=== PATIENT | male | born 1940 | race Caucasian/White ===

== ENCOUNTER → 2017-04-13 | Outpatient (CLI) | payer OTHER ==
[~2017-04-13] MED LIST: ASPCH81X PO; ATEN-173 PO; AZEL137S6 NAE; DUTA0.5C PO; FLNIN NAE; LISI10TA PO; MELA1TAB54 PO; MONT1TAB3 PO; MULTCHW PO; OMEGCAP2 PO; PANT40TA PO; PSYL55.43 PO; TAMS0.4C59 PO; TEMA30CA4 PO; XRL10 PO
--- NOTE | 2017-04-13 12:06 | DIAGNOSTIC IMAGING REPORT ---
ULTRASOUND KIDNEYS AND BLADDER CLINICAL HISTORY: Dysuria. COMPARISON STUDY: Abdominal CT dated 03/06/2015. TECHNIQUE: Real-time, grayscale, and color flow sonography of the kidneys and bladder is performed. Images are reviewed in the transverse and longitudinal planes. FINDINGS: Kidneys: The kidneys are atrophic. The right kidney measures 11.3 x 5.7 x 5.9 cm and the left kidney measures 11.1 x 4.5 x 5.9 cm. There is no hydronephrosis. No shadowing renal calculi are identified. A 2.6 cm lesion in the upper pole the left kidney likely represents a cyst when correlated with the 03/06/2015 CT scan. There is no sonographic evidence of solid renal mass lesion. No perinephric fluid is identified. Bladder: The bladder is normal in appearance. Bilateral ureteral jets were seen. IMPRESSION: 1. The kidneys are atrophic and without hydronephrosis. 2. The bladder was normal as visualized. 3. A 2.6 cm hypoechoic lesion in the upper pole of left kidney has been present dating back to 2014 and although indeterminant by ultrasound met CT criteria for a simple cyst on the 03/06/2015 CT scan. Electronically signed by: Sam Bajwa M.D. 04/13/2017 12:05 PM Dictated Date/Time: 04/13/2017 12:02 PM
== END | disposition home or self-care (01) ==
LOC: C.ULTR 10:10
PROVIDERS: ATTEND Urology
DX: N20.0 Calculus of kidney (principal); R30.0 Dysuria; N26.1 Atrophy of kidney (terminal); N28.9 Disorder of kidney and ureter, unspecified

== ENCOUNTER 2025-02-16 19:23 | Inpatient (IN) ==
--- NOTE | 2025-02-16 19:34 | Emergency Department Note ---
Impression & Plan Asthma exacerbation, Fever, Anemia, Nausea, Hypoxia ED Provider Note ED Provider Note NAME: KWADWO ELLIOTT AGE:85 SEX: Male : 1940 ARRIVES VIA: POV INFORMANT: Patient ED PROVIDER(s): Todd Guevara DO CHIEF COMPLAINT: Fever HPI: 85-year-old male presents emergency room with complaints of fever. Patient states that he really just got sick today. His states he has been sick for the last 4 days. His states that his temperature was 102 at home.He states that he had nausea and fever. He denies any abdominal pain. No exposure to anyone sick. Was seen at PCPs office today and given azithromycin. They are not sure why this happened. He does have a history of asthma. They deny history of COPD. PAST MEDICAL HISTORY:See Below PAST SURGICAL HISTORY:See Below FAMILY HISTORY:See Below SOCIAL HISTORY:See Below HOME MEDICATIONS:See Below ALLERGIES:See Below VITALS:See Below PHYSICAL EXAMINATION: GENERAL: alert, well appearing, well nourished, no distress, non-toxic EYE EXAM: normal conjunctiva, PERRL and EOM's grossly intact OROPHARYNX: no exudate, no erythema, lips, buccal mucosa, and tongue normal and mucous membranes are moist NECK: supple, no nuchal rigidity, no adenopathy, non-tender LUNGS: Wheezing to auscultation. Normal chest wall mechanics, no w/r/r HEART: no murmurs, S1 normal and S2 normal ABDOMEN: abdomen soft, non-tender, normo-active bowel sounds, no masses, no rebound or guarding. BACK: Back is symmetrical on inspection and there is no deformity, no midline tenderness, no CVA tenderness. SKIN: no rashes, petechiae, orbruising UPPER EXTREMITIES: upper extremities are grossly normal. FROM, nml pulses b/l. LOWER EXTREMITIES: No pitting edema. FROM, nml pulses b/l. NEURO EXAM: Normal sensorium, gross sensation intact. No ataxia. Vital Signs: reviewed and remarkable Differential Diagnosis: Viral syndrome, otitis, pharyngitis, pneumonia, influenza, meningitis, urinary tract infection, sepsis, bacteremia, as well as other pathologies. [employer]ISION [employer]KIN-year-old male presents emergency room with complaints of fever. Pt with hematuria, states that this is his baseline. No flank pain. States that it has been like this for years, he has had it worked up in the past. patient with history of asthma, wheezing, desatting below 88% with ambulation in the emergency room. Does not have oxygen at home. I spoke with him about results and plan for prednisone and nebulizer treatment. I spoke him about plan for admission given his hypoxia. He is agreeable to plan. He did already take azithromycin 500 today. I spoke with him and his family about results and plan for admission. They are agreeable to plan. Consult: Hospitalist ER Treatment Provided: See below Diagnostics Interpreted By Me: -Cardiac Monitoring: An order was placed for continuous cardiac monitoring. The monitor shows a rate of 89 with NS rhythm. -Laboratory studies: As stated above and show below. -Imaging studies: CXR - cardiomegaly Triage Nursing Note Reviewed Prior/Outside Records Reviewed Past Med/Surg History Problem List (Updated 02/16/25 @ 22:42 by Tracy Guevara DO) Hypoxia (Acute) Asthma exacerbation (Acute) Nausea (Acute) Anemia (Acute) Fever (Acute) Aortic regurgitation BPH (benign prostatic hyperplasia) Hiatal hernia AAA (abdominal aortic aneurysm) Dyslipidemia Hypertension S/P CABG (coronary artery bypass graft) CAD (coronary artery disease) Medical History Nephrolithiasis Surgical History H/O total hip arthroplasty S/P cholecystectomy Social History Smoking Status: Never smoker Preferred Language: Lao Feels Safe at Home: Yes Allergies Allergies Allergy/AdvReac Type Severity Reaction Status Date / Time rivaroxaban [From Xarelto] Allergy Unknown CAN'T Verified 02/16/25 21:19 REMEMBER sulfamethoxazole Allergy Unknown CAN'T Verified 02/16/25 21:19 [From Bactrim] REMEMBER trimethoprim [From Bactrim] Allergy Unknown CAN'T Verified 02/16/25 21:19 REMEMBER haloperidol AdvReac Severe "OUT OF Verified 02/16/25 21:19 IT" FOR 3 DAYS Penicillins AdvReac Intermediate "PASSED Verified 02/16/25 21:19 OUT" Home Meds Home Medications Medication Instructions Recorded Confirmed aspirin 81 mg tablet 81 mg PO DAILY 02/22/19 02/16/25 lisinopril 10 mg tablet 10 mg PO DAILY 02/22/19 02/16/25 montelukast 10 mg tablet 10 mg PO DAILY 02/22/19 02/16/25 pantoprazole 40 mg tablet,delayed 40 mg PO DAILY 02/22/19 02/16/25 release sucralfate 100 mg/mL oral 5 ml PO QID PRN ABD DISCOMFORT 05/07/21 02/16/25 suspension (Carafate) azelastine 137 mcg (0.1 %) nasal 2 spray intranasal Q12H PRN 05/06/22 02/16/25 spray Congestion temazepam 30 mg capsule 30 mg PO QPM PRN sleep 05/06/22 02/16/25 acetaminophen 650 mg 650 mg PO Q12H PRN fever or pain 09/02/22 02/16/25 tablet,extended release (Tylenol 8 Hour) fluticasone propionate 50 2 spray intranasal DAILY PRN 09/02/22 02/16/25 mcg/actuation nasal allergy symptoms spray,suspension psyllium husk 3.4 gram/5.4 gram 1 tbsp PO DAILY 09/02/22 02/16/25 oral powder (Metamucil) tamsulosin 0.4 mg capsule 0.4 mg PO DAILY #120 caps 09/02/22 02/16/25 rosuvastatin 40 mg tablet 40 mg PO DAILY 07/14/24 02/16/25 Results & Data (ED) Vital Signs Vital Signs - 24 hr 02/16/25 19:26 02/16/25 20:46 02/16/25 20:46 Temperature 37.1 C Temperature Source Oral Pulse Rate 100 H 89 Pulse Rate [Apical] 90 Pulse Rhythm Regular Pulse Rhythm [Apical] Pulse Strength [Apical] Respiratory Rate 16 20 Respiratory Effort / Characteristics Non-Labored Non-Labored Respiratory Depth Normal Normal Respiratory Pattern Regular Blood Pressure 160/87 H Blood Pressure [Right Arm] 139/68 Blood Pressure Mean 111 Blood Pressure Mean [Right Arm] 91 Pulse Oximetry 92 93 93 Oxygen Delivery Method Room Air Room Air Room Air Sepsis Recent Fever Within 48 Hours Yes Sepsis New/Unexplained Change in Mental Status No Sepsis Action Taken by Nursing No Action Required 02/16/25 22:00 02/16/25 22:40 02/16/25 22:52 Temperature Temperature Source Pulse Rate Pulse Rate [Apical] 92 H 89 Pulse Rhythm Pulse Rhythm [Apical] Regular Regular Pulse Strength [Apical] Normal Respiratory Rate 16 20 Respiratory Effort / Characteristics Non-Labored Spontaneous Accessory Muscle Use Non-Labored Spontaneous Respiratory Depth Normal Respiratory Pattern Regular Blood Pressure Blood Pressure [Right Arm] 133/68 150/73 H Blood Pressure Mean Blood Pressure Mean [Right Arm] 89 98 Pulse Oximetry 92 87 L 99 Oxygen Delivery Method Room Air Room Air Room Air Sepsis Recent Fever Within 48 Hours Sepsis New/Unexplained Change in Mental Status Sepsis Action Taken by Nursing Laboratory Data 02/16/25 20:37 02/16/25 20:37 Lab Results 02/16/25 02/16/25 Range/Units 20:37 20:55 WBC 4.99 (4.8-10.8) K/ul RBC 3.65 L (4.70-6.10) M/uL Hgb 11.7 L (14.0-18.0) g/dl Hct 33.7 L (42.0-52.0) % MCV 92.3 (80.0-100.0) fL MCH 32.1 (25.0-34.0) pg MCHC 34.7 (32.0-36.0) g/dL RDW Std Deviation 46.7 H (36.4-46.3) fL RDW Coeff of Maya 13.6 (11.5-14.5) % Plt Count 125 L (130-400) K/uL MPV 11.8 (9.4-12.4) fL Immature Gran % (Auto) 0.8 % Neut % (Auto) 76.6 % Lymph % (Auto) 10.6 % [place] % (Auto) 10.6 % Eos % (Auto) 0.8 % Baso % (Auto) 0.6 % Neut # (Auto) 3.82 (1.40-6.50) K/uL Lymph # (Auto) 0.53 L (1.20-3.40) K/uL [place] # (Auto) 0.53 (0.11-0.59) K/uL Eos # (Auto) 0.04 (0.00-0.50) K/uL Baso # (Auto) 0.03 (0.00-0.20) K/uL Immature Gran # (Auto) 0.04 (0.01-0.20) K/uL Sodium 136 (136-145) mmol/L Potassium 4.3 (3.5-5.1) mmol/L Chloride 102 (98-107) mmol/L Carbon Dioxide 25 (21-32) mmol/L Anion Gap 9 (3-11) BUN 34 H (6-23) mg/dl Creatinine 1.64 H (0.6-1.4) mg/dl Est Cr Clr Drug Dosing 34.1 ml/min eGFR 40.23 BUN/Creatinine Ratio 20.7 H (10-20) Glucose 131 H (70-99(Fasting)) mg/dl Lactate 0.9 (0.4-2.0) mmol/L Calcium 9.2 (8.6-10.3) mg/dl Total Bilirubin 0.5 (0.2-1.0) mg/dl AST 16 (13-39) U/L ALT 12 (7-52) U/L Alkaline Phosphatase 48 (34-104) U/L Total Protein 7.9 (6.0-8.3) gm/dl Albumin 4.0 (3.4-5.0) gm/dl Globulin 3.9 (2.5-4.0) gm/dl Albumin/Globulin Ratio 1.0 (0.9-2) Procalcitonin 0.11 (0-0.5) ng/ml Urine Color Yellow Urine Appearance Clear (Clear) Urine pH 5.0 (4.5-7.5) Ur Specific [place] 1.015 (1.000-1.030) Urine Protein 2+ H (Negative) Urine Glucose (UA) Negative (Negative) Urine Ketones Trace H (Negative) Urine Blood 3+ H (Negative) Urine Nitrite Negative (Negative) Urine Bilirubin Negative (Negative) Urine Urobilinogen Negative (Negative) Ur Leukocyte Esterase 1+ H (Negative) Urine WBC (Auto) 0-5 (0-5) /hpf Urine RBC (Auto) >20 H (0-2) /hpf U Hyaline Cast (Auto) 0-2 (0-2) /lpf U Epithel Cells (Auto) 0-2 (0-2) /hpf Urine Bacteria (Auto) None Seen (None Seen) Urine Comment SARS-CoV-2 (PCR) NEGATIVE (Negative) Influenza Type A (PCR) Negative (Neg) Influenza Type B (PCR) Negative (Neg) RSV (RT-PCR) Negative (Neg) Administered Medications Discontinued Medications Albuterol (Albut/Ipratrop 3mg/0.5mg Neb 3 Ml Vial) 3 ml NEB NOW STA; Protocol Stop: 02/16/25 22:42 Last Admin: 02/16/25 22:45 Dose: 3 ml Documented By: ezekiel Sodium Chloride (Nss) 1,000 mls @ 999 mls/hr IV .Q1H1M ONE Stop: 02/16/25 20:41 Last Infusion: 02/16/25 22:02 Dose: Infused Documented By: [email or web address] Admin: 02/16/25 20:51 Dose: 999 mls/hr Documented By: ezekiel Ondansetron HCl (Ondansetron 4 Mg Od Tab) 4 mg PO NOW STA Stop: 02/16/25 20:48 Last Admin: 02/16/25 21:02 Dose: 4 mg Documented By: ezekiel Prednisone (Prednisone 20 Mg Tab) 60 mg PO NOW STA Stop: 02/16/25 22:43 Last Admin: 02/16/25 22:49 Dose: 60 mg Documented By: ezekiel Imaging Data Radiologist's Impression: Chest X-Ray 02/16/25 21:10 Exam(s): XR CXR 1 VIEW EXAM: XR Chest, 1 View CLINICAL HISTORY: Reason for exam: fever. TECHNIQUE: Frontal view of the chest. COMPARISON: No relevant prior studies available. FINDINGS: Lungs: No grossly evident consolidation or overt edema. The left lung base is obscured by the heart size. Pleural space: No pleural effusion. No pneumothorax. Heart: Cardiomegaly status post CABG. IMPRESSION: Cardiomegaly status post CABG. Electronically signed by: Los Castro MD 02/16/25 22:28 PM Discharge Plan Visit Data Chief Complaint: Illness Stated Complaint: FEVER WEAK LOST CONTROL OF URINE ED Provider: Tracy Guevara Discharge Problem: Asthma exacerbation, Fever, Anemia, Nausea, Hypoxia Patient Disposition: Admitted As Inpatient Condition: Good Forms Stand Alone Forms: [facility], Important Visit Information Prescriptions Prescriptions: No Action Metamucil 3.4 gram/5.4 gram powder 1 tbsp PO DAILY Rx Instructions: mix into at least 8 oz of water or juice before administering acetaminophen [Tylenol 8 Hour] 650 mg tablet extended release 650 mg PO Q12H PRN (Reason: fever or pain) sucralfate [Carafate] 100 mg/mL suspension 5 ml PO QID PRN (Reason: ABD DISCOMFORT) Rx Instructions: swish in mouth and swallow; use after food/drink temazepam 30 mg capsule 30 mg PO QPM PRN (Reason: sleep) aspirin 81 mg tablet 81 mg PO DAILY montelukast 10 mg tablet 10 mg PO DAILY lisinopril 10 mg tablet 10 mg PO DAILY pantoprazole 40 mg tablet,delayed release (DR/EC) 40 mg PO DAILY azelastine 137 mcg (0.1 %) aerosol,spray 2 spray intranasal Q12H PRN (Reason: Congestion) fluticasone propionate 50 mcg/actuation spray,suspension 2 spray intranasal DAILY PRN (Reason: allergy symptoms) tamsulosin 0.4 mg capsule 0.4 mg PO DAILY Qty: 120 Rx Instructions: PER PT "NOT TAKING IT ANYMORE". rosuvastatin 40 mg tablet 40 mg PO DAILY Referrals Referrals: Kemal Lopez [Primary Care Provider] -
[2025-02-16 20:51] LABS: Hematocrit (blood only) 33.7 % (42.0-52.0); Hemoglobin 11.7 g/dl (14.0-18.0); Immature Granulocytes # (auto) 0.04 K/uL (0.01-0.20); Immature Granulocytes % (auto) 0.8 %; Mean Corpuscular Hemoglobin 32.1 pg (25.0-34.0); Mean Corpuscular Volume 92.3 fL (80.0-100.0); Platelet Count 125 K/uL (130-400); RDW Standard Deviation 46.7 fL (36.4-46.3); Red Blood Count 3.65 M/uL (4.70-6.10); White Blood Count 4.99 K/ul (4.8-10.8)
[2025-02-16] MEDS: SODIUM CHLORIDE 0.9% 1,000 ML IV ONE (20:51)
[2025-02-16] MEDS: ONDANSETRON 4 MG OD TAB PO STA (21:02)
[2025-02-16 21:08] LABS: Alanine Aminotransferase 12.0 U/L (7-52); Albumin Globulin Ratio 1.0 (0.9-2); Albumin Level 4.0 gm/dl (3.4-5.0); Alkaline Phosphatase 48.0 U/L (34-104); Anion Gap 9.0 (3-11); Bilirubin,Total 0.5 mg/dl (0.2-1.0); Blood Urea Nitrogen 34.0 mg/dl (6-23); Calcium 9.2 mg/dl (8.6-10.3); Carbon Dioxide 25.0 mmol/L (21-32); Chloride 102.0 mmol/L (98-107); Creatinine Clr Calc Pharmacy 34.1 ml/min; Globulin 3.9 gm/dl (2.5-4.0); Glucose 131.0 mg/dl (70-99(Fasting)); Potassium 4.3 mmol/L (3.5-5.1); Sodium 136.0 mmol/L (136-145); Total Protein 7.9 gm/dl (6.0-8.3)
[2025-02-16 21:24] LABS: Appearance Urine Clear (Clear); Bacteria Urine Automated None Seen (None Seen); Cast Urine Automated 0-2 /lpf (0-2); Epithelial Cell Urine Auto 0-2 /hpf (0-2); Glucose Urine UA Negative (Negative); RBC Urine Automated >20 /hpf (0-2); WBC Urine Automated 0-5 /hpf (0-5)
[2025-02-16 21:50] LABS: Influenza A virus by PCR Negative (Neg); Influenza B virus by PCR Negative (Neg); SARS CoV2 RNA(COVID-19) Ceph NEGATIVE (Negative)
--- NOTE | 2025-02-16 22:29 | XRay Report ---
Exam(s): XR CXR 1 VIEW EXAM: XR Chest, 1 View CLINICAL HISTORY: Reason for exam: fever. TECHNIQUE: Frontal view of the chest. COMPARISON: No relevant prior studies available. FINDINGS: Lungs: No grossly evident consolidation or overt edema. The left lung base is obscured by the heart size. Pleural space: No pleural effusion. No pneumothorax. Heart: Cardiomegaly status post CABG. IMPRESSION: Cardiomegaly status post CABG. Electronically signed by: Los Castro MD 02/16/25 22:28 PM
[2025-02-16] MEDS: ALBUT/IPRATROP 3MG/0.5MG NEB 3 ML VIAL NEB STA (22:45)
[2025-02-16] MEDS: predniSONE 20 MG TAB PO STA (22:49)
[2025-02-16] MEDS ORDERED: ALBUT/IPRATROP 3MG/0.5MG NEB 3 ML VIAL NEB PRN (23:21)
--- NOTE | 2025-02-16 23:24 | History & Physical Report ---
Date of Service February 16, 2025 Assessment & Plan (1) Asthma exacerbation: (2) Acute kidney injury: (3) Hypoxia: Plan The patient is a 85-year-old male with a past medical history including asthma, aortic regurgitation, BPH, hiatal hernia, AAA, dyslipidemia, hypertension, CAD and s/p CABG.The patient presents to the emergency department with complaint of low-grade fever, nausea without vomiting x 4 days, and shortness of breath with dyspnea on exertion noted by family. He was seen at his PCPs office today and given azithromycin. Without any significant improvement. Today, he presents to the emergency department this evening for assessment. Workup in the emergency department included a chest x-ray showing mild cardiomegaly and median sternotomy wires. Creatinine was 1.64 with base 1.0. From the ED received the following: Normal saline 1 L fluid bolus, Zofran ODT 4 mg, DuoNeb treatment, prednisone 60 mg p.o. daily. Without significant improvement in symptoms, [facility] and [facility]. Asthma exacerbation with hypoxia/allergy- Received prednisone 60 mg p.o. and DuoNeb treatment, as the emergency department was trying to discharge him to home, but he did not improve enough and needed to be admitted. Methylprednisolone 40 mg IV now, and every 12 hours Duonebs every 2 hours as needed Continue azelastine, fluticasone nasal spray, montelukast, Acute kidney injury- Creatinine 1.64, with base 1.0 Hold lisinopril Status post 1 L normal saline bolus from the ED Placed on NSS at 80 mL/h x 1 additional liter Recheck laboratories in a.m. BPH with LUTS- Continue tamsulosin Hyperlipidemia- Continue rosuvastatin GERD- Continue pantoprazole and Carafate Insomnia- Continue temazepam History of Present Illness Chief Complaint: The patient presents to the emergency department with complaint of low-grade fever, nausea without vomiting x 4 days, and shortness of breath with dyspnea on exertion noted by family. He was seen at his PCPs office today and given azithromycin. Without any significant improvement. Today, he presents to the emergency department this evening for assessment. Primary Care Provider: Kemal Lopez The patient is a 85-year-old male with a past medical history including asthma, aortic regurgitation, BPH, hiatal hernia, AAA, dyslipidemia, hypertension, CAD and s/p CABG.The patient presents to the emergency department with complaint of low-grade fever, nausea without vomiting x 4 days, and shortness of breath with dyspnea on exertion noted by family. He was seen at his PCPs office today and given azithromycin. Without any significant improvement. Today, he presents to the emergency department this evening for assessment. Workup in the emergency department included a chest x-ray showing mild cardiomegaly and median sternotomy wires. Creatinine was 1.64 with base 1.0. From the ED received the following: Normal saline 1 L fluid bolus, Zofran ODT 4 mg, DuoNeb treatment, prednisone 60 mg p.o. daily. Without significant improvement in symptoms, [facility] and treatment. Allergies Allergy/AdvReac Type Severity Reaction Status Date / Time rivaroxaban [From Xarelto] Allergy Unknown CAN'T Verified 02/16/25 21:19 REMEMBER sulfamethoxazole Allergy Unknown CAN'T Verified 02/16/25 21:19 [From Bactrim] REMEMBER trimethoprim [From Bactrim] Allergy Unknown CAN'T Verified 02/16/25 21:19 REMEMBER haloperidol AdvReac Severe "OUT OF Verified 02/16/25 21:19 IT" FOR 3 DAYS Penicillins AdvReac Intermediate "PASSED Verified 02/16/25 21:19 OUT" Home Medications Medication Instructions Recorded Confirmed Type aspirin 81 mg tablet 81 mg PO DAILY 02/22/19 02/16/25 History lisinopril 10 mg tablet 10 mg PO DAILY 02/22/19 02/16/25 History montelukast 10 mg tablet 10 mg PO DAILY 02/22/19 02/16/25 History pantoprazole 40 mg tablet,delayed 40 mg PO DAILY 02/22/19 02/16/25 History release sucralfate 100 mg/mL oral 5 ml PO QID PRN ABD DISCOMFORT 05/07/21 02/16/25 History suspension (Carafate) azelastine 137 mcg (0.1 %) nasal 2 spray intranasal Q12H PRN 05/06/22 02/16/25 History spray Congestion temazepam 30 mg capsule 30 mg PO QPM PRN sleep 05/06/22 02/16/25 History acetaminophen 650 mg 650 mg PO Q12H PRN fever or pain 09/02/22 02/16/25 History tablet,extended release (Tylenol 8 Hour) fluticasone propionate 50 2 spray intranasal DAILY PRN 09/02/22 02/16/25 History mcg/actuation nasal allergy symptoms spray,suspension psyllium husk 3.4 gram/5.4 gram 1 tbsp PO DAILY 09/02/22 02/16/25 History oral powder (Metamucil) tamsulosin 0.4 mg capsule 0.4 mg PO DAILY #120 caps 09/02/22 02/16/25 History rosuvastatin 40 mg tablet 40 mg PO DAILY 07/14/24 02/16/25 History Past Med/Surg History Problem List (Updated 02/17/25 @ 03:20 by Marciano Schmitz MD) Acute kidney injury Hypoxia (Acute) Asthma exacerbation (Acute) Nausea (Acute) Anemia (Acute) Fever (Acute) Aortic regurgitation BPH (benign prostatic hyperplasia) Hiatal hernia AAA (abdominal aortic aneurysm) Dyslipidemia Hypertension S/P CABG (coronary artery bypass graft) CAD (coronary artery disease) Medical History Nephrolithiasis Surgical History H/O total hip arthroplasty S/P cholecystectomy Social History Smoking Status: Former smoker Tobacco Type: Smokeless Tobacco (Dip or Chew) Second Hand Exposure: No; Do You Dip or Chew Tobacco: No; Hx Alcohol Use: No Hx Substance Use: No Preferred Language: Setswana Communication Ability: Effective Production Lead Required: No Beliefs That Will Affect Care: None Current Living Situation: Spouse and Family Current Living Situation Comment: lives with , daughter & son-in-law Feels Safe at Home: Yes Assistive Devices: Cane, Denture - Upper, Denture - Lower, Glasses and Hearing Aid - Bilateral Review of Systems Review of Systems: The patient denies chest pain, palpitations, lower extremity swelling, sore throat, fevers, chills, sweats, vomiting, diarrhea , constipation, abdominal pain, pelvic pain, blood in urine or stool, dysuria, urinary frequency or urgency, lightheadedness, dizziness, headache, memory loss, loss of consciousness, rash, abnormal bruising or bleeding, imbalance, focal weakness, numbness or tingling in arms or legs, generalized arthralgias or myalgias, back or neck pain, or night sweats. The review of systems is otherwise negative other than for that already noted above, and at least 10 systems have been reviewed. Physical Exam Physical Exam: The patient is awake, alert and oriented 3, well developed and well nourished, normocephalic and atraumatic, lying in bed and in no acute distress. HEENT--PERRL, EOMI, mucous membranes and oropharynx dry. Neck--supple. No JVD. No bruits. Thyroid normal, trachea midline, no adenopathy. Heart--normal S1 and S2. No murmurs, rubs or gallops. Lungs--clear bilaterally, no respiratory distress, no accessory muscle use. Abdomen--normal bowel sounds and soft. Nontender. Nondistended, no hernias or masses, no organomegaly. Extremities--no cyanosis or clubbing. No edema. There are good distal pulses b/l. Dermatologic--normal skin turgor, normal color, no abnormal lymph nodes, no rash. Neurologic--cranial nerves II through XII grossly intact. Rheumatologic--normal range of motion. Psychiatric--normal affect. Results & Data Results & Data Vital Signs (Past 12 Hours) Vital Signs Temp Pulse Pulse Resp BP BP Pulse Ox 02/16/25 22:52 89 20 150/73 H 99 02/16/25 22:40 87 L 02/16/25 22:00 92 H 16 133/68 92 02/16/25 20:46 89 93 02/16/25 20:46 90 20 139/68 93 02/16/25 19:26 37.1 C 100 H 16 160/87 H 92 O2 Del Method 02/16/25 22:52 Room Air 02/16/25 22:40 Room Air 02/16/25 22:00 Room Air 02/16/25 20:46 Room Air 02/16/25 20:46 Room Air 02/16/25 19:26 Room Air Laboratory Results Laboratory Results WBC 4.99 K/ul (4.8-10.8) 02/16/25 20:37 RBC 3.65 M/uL (4.70-6.10) L 02/16/25 20:37 Hgb 11.7 g/dl (14.0-18.0) L 02/16/25 20: Hct 33.7 % (42.0-52.0) L 02/16/25 20: MCV 92.3 fL (80.0-100.0) 02/16/25 20: MCH 32.1 pg (25.0-34.0) 02/16/25 20: MCHC 34.7 g/dL (32.0-36.0) 02/16/25 20: RDW Std Deviation 46.7 fL (36.4-46.3) H 02/16/25 20: RDW Coeff of Maya 13.6 % (11.5-14.5) 02/16/25: Plt Count 125 K/uL (130-400) L 02/16/25 20: MPV 11.8 fL (9.4-12.4) 02/16/25 20: Immature Gran % (Auto) 0.8 % 02/16/25 20: Neut % (Auto) 76.6 % 02/16/25 20:37 Lymph % (Auto) 10.6 % 02/16/25 20:37 [place] % (Auto) 10.6 % 02/16/25 20:37 Eos % (Auto) 0.8 % 02/16/25 20:37 Baso % (Auto) 0.6 % 02/16/25 20:37 Neut # (Auto) 3.82 K/uL (1.40-6.50) 02/16/25 20:37 Lymph # (Auto) 0.53 K/uL (1.20-3.40) L 02/16/25 20:37 [place] # (Auto) 0.53 K/uL (0.11-0.59) 02/16/25 20: Eos # (Auto) 0.04 K/uL (0.00-0.50) 02/16/25 20:37 Baso # (Auto) 0.03 K/uL (0.00-0.20) 02/16/25 20:37 Immature Gran # (Auto) 0.04 K/uL (0.01-0.20) 02/16/25 20: Sodium 136 mmol/L (136-145) 02/16/25 20:37 Potassium 4.3 mmol/L (3.5-5.1) 02/16/25 20:37 Chloride 102 mmol/L (98-107) 02/16/25 20:37 Carbon Dioxide 25 mmol/L (21-32) 02/16/25 20:37 Anion Gap 9 (3-11) 02/16/25 20:37 BUN 34 mg/dl (6-23) H 02/16/25 20:37 Creatinine 1.64 mg/dl (0.6-1.4) H 02/16/25 20:37 Est Cr Clr Drug Dosing 34.1 ml/min 02/16/25 20:37 eGFR 40.23 02/16/25 20:37 BUN/Creatinine Ratio 20.7 (10-20) H 02/16/25 20:37 Glucose 131 mg/dl (70-99(Fasting)) H 02/16/25 20:37 Lactate 0.9 mmol/L (0.4-2.0) 02/16/25 20:37 Calcium 9.2 mg/dl (8.6-10.3) 02/16/25 20:37 Total Bilirubin 0.5 mg/dl (0.2-1.0) 02/16/25 20:37 AST 16 U/L (13-39) 02/16/25 20:37 ALT 12 U/L (7-52) 02/16/25 20:37 Alkaline Phosphatase 48 U/L (34-104) 02/16/25 20:37 Total Protein 7.9 gm/dl (6.0-8.3) 02/16/25 20:37 Albumin 4.0 gm/dl (3.4-5.0) 02/16/25 20:37 Globulin 3.9 gm/dl (2.5-4.0) 02/16/25 20:37 Albumin/Globulin Ratio 1.0 (0.9-2) 02/16/25 20:37 Procalcitonin 0.11 ng/ml (0-0.5) 02/16/25 20:37 Urine Color Yellow 02/16/25 20:55 Urine Appearance Clear (Clear) 02/16/25 20:55 Urine pH 5.0 (4.5-7.5) 02/16/25 20:55 Ur Specific [place] 1.015 (1.000-1.030) 02/16/25 20:55 Urine Protein 2+ (Negative) H 02/16/25 20:55 Urine Glucose (UA) Negative (Negative) 02/16/25 20:55 Urine Ketones Trace (Negative) H 02/16/25 20:55 Urine Blood 3+ (Negative) H 02/16/25 20:55 Urine Nitrite Negative (Negative) 02/16/25 20:55 Urine Bilirubin Negative (Negative) 02/16/25 20:55 Urine Urobilinogen Negative (Negative) 02/16/25 20:55 Ur Leukocyte Esterase 1+ (Negative) H 02/16/25 20:55 Urine WBC (Auto) 0-5 /hpf (0-5) 02/16/25 20:55 Urine RBC (Auto) >20 /hpf (0-2) H 02/16/25 20:55 U Hyaline Cast (Auto) 0-2 /lpf (0-2) 02/16/25 20:55 U Epithel Cells (Auto) 0-2 /hpf (0-2) 02/16/25 20:55 Urine Bacteria (Auto) None Seen (None Seen) 02/16/25 20:55 Urine Comment 02/16/25 20:55 SARS-CoV-2 (PCR) NEGATIVE (Negative) 02/16/25 20:55 Influenza Type A (PCR) Negative (Neg) 02/16/25 20:55 Influenza Type B (PCR) Negative (Neg) 02/16/25 20:55 RSV (RT-PCR) Negative (Neg) 02/16/25 20:55 Impressions Chest X-Ray 02/16/25 21:10 Exam(s): XR CXR 1 VIEW EXAM: XR Chest, 1 View CLINICAL HISTORY: Reason for exam: fever. TECHNIQUE: Frontal view of the chest. COMPARISON: No relevant prior studies available. FINDINGS: Lungs: No grossly evident consolidation or overt edema. The left lung base is obscured by the heart size. Pleural space: No pleural effusion. No pneumothorax. Heart: Cardiomegaly status post CABG. IMPRESSION: Cardiomegaly status post CABG. Electronically signed by: Los Castro MD 02/16/25 22:28 PM Code Status & VTE Plan Code Status DNR/DNI VTE Prophylaxis Plan VTE Prophylaxis will be ordered: Yes PG Care Time/CCT Total # of Minutes Spent Total Time Spent with Patient: Total time spent is greater than 50% in coordination of care (as documented) at patient's floor/unit and/or counseling patient: Coding Level of Care Code 14915 INT INP/OBS CARE 375MIN Diagnoses Asthma exacerbation J45.901 Acute kidney injury N17.9 Hypoxia R09.02
[2025-02-17] MEDS: SODIUM CHLORIDE 0.9% 1,000 ML IV SCH (00:20)
[2025-02-17] MEDS ORDERED: ONDANSETRON INJ 2 MG/ML 2 ML VIAL IV PRN (02:46)
[2025-02-17] MEDS ORDERED: AZELASTINE HCL 0.1% NASAL 200 SPRAYS/27,400 MCG BTL NAE PRN (02:46)
[2025-02-17] MEDS ORDERED: FLUTICASONE PROPIONATE NA SPR 16 GM BTL NAE PRN (02:46)
[2025-02-17] MEDS ORDERED: ACETAMINOPHEN 325 MG TAB PO PRN (02:46)
[2025-02-17] MEDS ORDERED: LORazepam 1 MG TAB PO PRN (02:56)
--- NOTE | 2025-02-17 07:24 | Hospitalist Progress Note ---
Date of Service February 17, 2025 Assessment & Plan (1) Acute kidney injury: (2) Acute respiratory failure with hypoxemia: (3) Acute respiratory failure with hypoxia: (4) Normocytic normochromic anemia: (5) AAA (abdominal aortic aneurysm): (6) Gross hematuria: Admission and Anticipated Discharge Date Admission Date: February 16, 2025 Results & Data Results & Data Vital Signs (Past 12 Hours) Vital Signs Temp Pulse Pulse Pulse Resp BP BP 02/17/25 07:08 83 02/17/25 02:23 84 02/17/25 02:10 02/17/25 02:10 36.8 C 88 20 146/63 H 02/17/25 00:25 86 20 02/17/25 00:23 84 20 02/16/25 23:54 91 H 02/16/25 22:52 89 20 02/16/25 22:40 02/16/25 22:00 92 H 16 02/16/25 20:46 89 02/16/25 20:46 90 20 02/16/25 19:37 93 H 02/16/25 19:26 37.1 C 100 H 16 160/87 H BP Pulse Ox O2 Del Method O2 Flow Rate 02/17/25 07:08 02/17/25 02:23 02/17/25 02:10 Nasal Cannula 2 02/17/25 02:10 92 Nasal Cannula 2 02/17/25 00:25 132/63 93 Nasal Cannula 2 02/17/25 00:23 132/63 93 Nasal Cannula 2 02/16/25 23:54 02/16/25 22:52 150/73 H 99 Room Air 02/16/25 22:40 87 L Room Air 02/16/25 22:00 133/68 92 Room Air 02/16/25 20:46 93 Room Air 02/16/25 20:46 139/68 93 Room Air 02/16/25 19:37 02/16/25 19:26 92 Room Air PG Care Time/CCT Total # of Minutes Spent Total Time Spent with Patient: Total time spent is greater than 50% in coordination of care (as documented) at patient's floor/unit and/or counseling patient: Coding Diagnoses Acute kidney injury N17.9 Acute respiratory failure with hypoxemia J96.01 Acute respiratory failure with hypoxia J96.01 Normocytic normochromic anemia D64.9 AAA (abdominal aortic aneurysm) I71.4 Gross hematuria R31.0
[2025-02-17] MEDS: ROSUVASTATIN CALCIUM 20 MG TAB PO SCH (08:10)
[2025-02-17] MEDS: HEPARIN SOD 5,000 UNIT/0.5 ML VIAL SQ SCH (08:10)
[2025-02-17 08:11] LABS: Hematocrit (blood only) 31.8 % (42.0-52.0); Hemoglobin 10.5 g/dl (14.0-18.0); Immature Granulocytes # (auto) 0.02 K/uL (0.01-0.20); Immature Granulocytes % (auto) 0.7 %; Mean Corpuscular Hemoglobin 30.7 pg (25.0-34.0); Mean Corpuscular Volume 93.0 fL (80.0-100.0); Platelet Count 121 K/uL (130-400); RDW Standard Deviation 47.3 fL (36.4-46.3); Red Blood Count 3.42 M/uL (4.70-6.10); White Blood Count 2.92 K/ul (4.8-10.8)
[2025-02-17] MEDS: TAMSULOSIN HCL 0.4 MG CAP PO SCH (08:11)
[2025-02-17] MEDS: ASPIRIN 81 MG ECTAB PO SCH (08:11)
[2025-02-17] MEDS: PSYLLIUM HUSK 4GM PACKET PO SCH (08:11)
[2025-02-17] MEDS: SUCRALFATE 1 GM/10 ML UDC PO PRN (08:11)
[2025-02-17] MEDS: MONTELUKAST SODIUM 10 MG TABLET PO SCH (08:11)
[2025-02-17 08:24] LABS: Albumin Level 3.7 gm/dl (3.4-5.0); Anion Gap 5.0 (3-11); Calcium 8.7 mg/dl (8.6-10.3); Carbon Dioxide 24.0 mmol/L (21-32); Chloride 107.0 mmol/L (98-107); Magnesium 1.8 mg/dl (1.7-2.4); Potassium 4.4 mmol/L (3.5-5.1); Sodium 136.0 mmol/L (136-145)
[2025-02-17 08:30] LABS: Blood Urea Nitrogen 32.0 mg/dl (6-23); Creatinine Clr Calc Pharmacy 42.0 ml/min; Glucose 182.0 mg/dl (70-99(Fasting))
[2025-02-17] MEDS ORDERED: methylPREDNISolone 10 mg/mL (For Ped Dose < 7mg) IV SCH (08:30)
--- NOTE | 2025-02-17 09:13 | XRay Report ---
XR chest 2V PA/lateral CLINICAL HISTORY: Reassess previous findings iso hypoxia COMPARISON STUDY: 02/16/2025 FINDINGS: Stable CABG. Stable cardiomegaly with pulmonary vascular congestion. Inspiration is shallow . There is mild stranding opacity in the lung bases. No other consolidation or pleural effusion. No p neumothorax. IMPRESSION: 1. CHF. 2. Atelectasis versus early pneumonia in the lung bases. ACT 112: Negative or not required by law. Electronically signed by: Donald Schaefer M.D. 02/17/2025 9:12 AM
[2025-02-17 11:43] VITALS: TEMP 97.7
[2025-02-17 13:56] VITALS: BP 134/70; RESP 18; O2SAT 93
[2025-02-17 13:59] VITALS: PULSE 80
[2025-02-17] MEDS: predniSONE 20 MG TAB PO SCH (14:19)
[2025-02-17] MEDS: AZITHROMYCIN 500 MG/255 ML D5W BAG IV SCH (14:20)
[2025-02-17] MEDS: cefTRIAXone SODIUM 2,000 MG/50 ML BAG IV SCH (16:12)
--- NOTE | 2025-02-18 15:11 | Discharge Summary ---
Discharge Summary Date of Service February 17, 2025 Principal Dx & Hospital Course #1 = Principal Diagnosis (1) Gross hematuria: (2) Acute respiratory failure with hypoxia: (3) Acute kidney injury: Plan In summary this is a an 85-year-old male admitted to [facility] due to atypical pneumonia with hypoxia in addition to an acute kidney injury. #Acute respiratory failure with hypoxia secondary to atypical pneumonia The patient has had a subacute course over the past 5 days, with subjective fevers and chills at home; was initially started on an oral antibiotic in the outpatient setting however acute decompensation was brought to the emergency department for further evaluation; the patient received systemic steroids, inhaler therapies with significant improvement along with antibiotics. The patient this morning is without significant oxygen requirement, ambulating without difficulty about the patient's room, interested in discharge. The patient's family was available at bedside to discuss the risks of discharge at this point in time versus benefits of leaving the hospital; through shared decision making it was determined the patient will be discharged with continued antibiotic course as prescribed by their primary care physician. The patient was strongly encouraged to continue using incentive spirometry at home, regular ambulation to facilitate airway clearance and prevent future episodes of pneumonia. #Prerenal acute kidney injury The patient did have initial acute kidney injury with a creatinine of 1.64 with baseline normal renal function; with volume resuscitation, and improved oral intake his renal function rapidly recovered without complication. Admission HPI Per Admitting Provider The patient is a 85-year-old male with a past medical history including asthma, aortic regurgitation, BPH, hiatal hernia, AAA, dyslipidemia, hypertension, CAD and s/p CABG.The patient presents to the emergency department with complaint of low-grade fever, nausea without vomiting x 4 days, and shortness of breath with dyspnea on exertion noted by family. He was seen at his PCPs office today and given azithromycin. Without any significant improvement. Today, he presents to the emergency department this evening for assessment. Workup in the emergency department included a chest x-ray showing mild cardiomegaly and median sternotomy wires. Creatinine was 1.64 with base 1.0. From the ED received the following: Normal saline 1 L fluid bolus, Zofran ODT 4 mg, DuoNeb treatment, prednisone 60 mg p.o. daily. Without significant improvement in symptoms, patient was referred to the [facility] hospitalist service for further evaluation and treatment. Discharge Exam General: Elderly male in no acute distress Vital Signs: Reviewed HEENT: Moist mucous membranes Pulmonary: Clear to auscultation bilaterally with symmetrically unrestricted chest wall excursion Cardiovascular: Regular rate and rhythm without murmurs, rubs, or gallops; S1 and S2 normal; right radial pulse 2+ Neurologic: Cranial nerves II through XII grossly intact; no discernible focal weakness no paresthesia Discharge Plan Discharge Items Patient Disposition: Home - Self-Care Reason For Visit: ASTHMA EX, RAAD Discharge Diagnosis: Atypical pneumonia Condition on Discharge: Good Activity: Per Instructions section Non-emergency contact: Primary Care Provider Call non-emergency contact if: you have any medication questions and you have a fever Follow-up/Referrals: Kemal Lopez [Primary Care Provider] - (PLEASE CALL YOUR PRIMARY CARE PROVIDER TO SCHEDULE A HOSPITAL FOLLOW-UP APPOINTMENT WITHIN 7-10 DAYS) Diet: Low Fat Fluids: 2000ml (8 cups) Ambulatory Orders: Urine rflx Microscopic (Routine) Timeframe: 3 Weeks Location: Determined by Patient Ordered By: Naresh Vegas Attending Provider Instructions: You were admitted to the [facility] due to concern of an asthma exacerbation, found to be more likely consequential of an atypical pneumonia. With respect to this pneumonia, you were treated with intravenous antibiotics; upon discharge, we recommend continuing your previously prescribed Azithromycin for its full course as determined by your PCP. Furthermore, we recommend regular use of your incentive spirometer as discussed at bedside. At the time of your admission, it was noted your renal function was mildly abnormal; this improved with intravenous fluids, and resolved at the time of discharge. This acute kidney injury is likely consequential of your superimposed infection and poor appetite/oral intake prior to presentation. It was noted at presentation your urine had a high concentration of red blood cells; we recommend repeat urinalysis in the outpatient setting to determine the accuracy of this test. Thank you for choosing [facility] as your healthcare provider. Stand-Alone Forms: My [facility] Medications and DC Order Prescriptions: Continued Metamucil 3.4 gram/5.4 gram powder 1 tbsp PO DAILY Rx Instructions: mix into at least 8 oz of water or juice before administering acetaminophen [Tylenol 8 Hour] 650 mg tablet extended release 650 mg PO Q12H PRN (Reason: fever or pain) sucralfate [Carafate] 100 mg/mL suspension 5 ml PO QID PRN (Reason: ABD DISCOMFORT) Rx Instructions: swish in mouth and swallow; use after food/drink temazepam 30 mg capsule 30 mg PO QPM PRN (Reason: sleep) aspirin 81 mg tablet 81 mg PO DAILY montelukast 10 mg tablet 10 mg PO DAILY lisinopril 10 mg tablet 10 mg PO DAILY pantoprazole 40 mg tablet,delayed release (DR/EC) 40 mg PO DAILY fluticasone propionate 50 mcg/actuation spray,suspension 2 spray intranasal DAILY PRN (Reason: allergy symptoms) tamsulosin 0.4 mg capsule 0.4 mg PO DAILY Qty: 120 Rx Instructions: PER PT "NOT TAKING IT ANYMORE". rosuvastatin 40 mg tablet 40 mg PO DAILY Discontinued azelastine 137 mcg (0.1 %) aerosol,spray 2 spray intranasal Q12H PRN (Reason: Congestion) Discharge Orders: Discharge Order (Routine); Ordered 02/17/25 Ordered By: Naresh Gonzalez Admission Data Admit Date/Time: 02/16/25 23:23 Attending Provider: Naresh Gonzalez Admit Provider: Marciano Schmitz Primary Care Provider: Kemal Lopez Other Providers: Marciano Schmitz Other Interventions: Discharge Summary Assessment (RN) Last Done: 02/17/25 13:55 Hospital Stay Data Consultations 02/16/25 22:53 ED Decision to Admit Stat Discharge Instructions Given to Patient (Per Discharging Provider) You were admitted to the [facility] due to concern of an asthma exacerbation, found to be more likely consequential of an atypical pneumonia. With respect to this pneumonia, you were treated with intravenous antibiotics; upon discharge, we recommend continuing your previously prescribed Azithromycin for its full course as determined by your PCP. Furthermore, we recommend regular use of your incentive spirometer as discussed at bedside. At the time of your admission, it was noted your renal function was mildly abnormal; this improved with intravenous fluids, and resolved at the time of discharge. This acute kidney injury is likely consequential of your superimposed infection and poor appetite/oral intake prior to presentation. It was noted at presentation your urine had a high concentration of red blood cells; we recommend repeat urinalysis in the outpatient setting to determine the accuracy of this test. Thank you for choosing [facility] as your healthcare provider. Total Time Total Time Spent Total Time Spent (In Minutes): I personally spent 60 minutes in today's discharge including review of the patient's inpatient and outpatient charts, bedside evaluation, discussion of the patient's potential plan of care with the patient and their family at bedside, and coordination of the patient's discharge Coding Level of Care Code 66661 INP/OBS DISCH >30 MIN Diagnoses Gross hematuria R31.0 Acute respiratory failure with hypoxia J96.01 Acute kidney injury N17.9
== END 2025-02-17 18:07 | disposition home or self-care (01) | DRG 193 ==
LOC: SUATTDRO → ED 19:23 → SUATTDRO 23:23 → 2N 23:23